=== PATIENT | female | born 1950 | race Caucasian/White ===

== ENCOUNTER 2024-07-04 15:24 | Outpatient (CLI) | payer MEDICARE, OTHER | END 2024-07-04 15:25 | disposition home or self-care (01) | LOC: RAD 15:24 | PROVIDERS: ATTEND Internal Medicine | DX: R06.00 Dyspnea, unspecified (principal) | CPT/HCPCS: 71046 ==

== ENCOUNTER 2025-05-25 10:45 | Outpatient (CLI) | payer MEDICARE, OTHER | END 2025-05-25 10:46 | disposition home or self-care (01) | LOC: BICMAMMO 10:45 | DX: Z13.820 Encounter for screening for osteoporosis (principal); M85.852 Other specified disorders of bone density and structure, left thigh | CPT/HCPCS: 77080 ==